=== PATIENT | male | born 1975 | race Hispanic/Latino ===

== ENCOUNTER 2018-09-14 14:30 | Inpatient (IN) | payer OTHER ==
[~2018-09-14] VITALS: Ht 182.9 cm; Wt 116.8 kg
[~2018-09-14 14:30] MED LIST: INSU10VI3 SQ; METF-446 PO; TYL3 PO
[2018-09-14] MEDS ORDERED: MORPHINE SULFATE 4 MG/1ML SYG ONE (15:42)
[2018-09-14 17:03] LABS: BASOPHILS % (AUTO) 0.4 % (0.0-5.0); EOSINOPHILS % (AUTO) 1.2 % (0.0-8.0); HEMATOCRIT 44.4 % (42-54); LYMPHOCYTES % (AUTO) 35.6 % (21.0-51.0); MEAN CORPUSCULAR HEMOGLOBIN 26.4 pg (27.0-33.0); MEAN CORPUSCULAR HGB CONC 33.3 g/dL (32.0-36.0); MEAN CORPUSCULAR VOLUME 79.4 fL (79-99); MONOCYTES % (AUTO) 8.6 % (3.0-13.0); NEUTROPHILS % (AUTO) 54.2 % (40.0-77.0); PLATELET COUNT (AUTO) 196 K/uL (130-400); RED BLOOD CELL COUNT(AUTO) 5.58 MIL/uL (4.50-6.20); RED CELL DISTRIBUTION WIDTH 15.2 % (11.0-15.5); WHITE BLOOD COUNT (AUTO) 6.9 K/uL (4.8-10.8)
[2018-09-14 17:23] LABS: CREATININE 0.7 mg/dL (0.5-1.5); POTASSIUM 3.9 mmol/L (3.5-5.1)
[2018-09-14 17:25] LABS: INR 0.96 (0.85-1.15); PARTIAL THROMBOPLASTIN TIME 30.6 SEC (26.3-35.5); PROTHROMBIN TIME 10.1 SEC (9.6-11.6)
[2018-09-14 17:27] LABS: ALBUMIN 3.1 g/dL (3.5-5.0); BILIRUBIN,TOTAL 0.4 mg/dL (0.2-1.0); CRP QUANTITATIVE 30.9 mg/L (0.00-9.0); TOTAL PROTEIN, SERUM 6.7 g/dL (6.0-8.3)
[2018-09-14 18:23] LABS: ERYTHROCYTE SEDIMENTATION RATE 13 MM/HR (0-15)
[2018-09-14] MEDS ORDERED: ZOSYN 3.375GM+NS 50ML 50 ML IV ONE (18:41)
[2018-09-14] MEDS ORDERED: SODIUM CHLORIDE 0.9% 50 ML IV ONE (18:41)
[2018-09-14] MEDS ORDERED: ACETAMINOPHEN 325 MG TAB PO PRN (19:15)
[2018-09-14] MEDS ORDERED: ONDANSETRON HCL 4 MG/2 ML VIAL IV PRN (19:15)
[2018-09-14] MEDS ORDERED: METFORMIN HCL 500 MG TABLET PO SCH (19:49)
[2018-09-14] MEDS: ZOSYN 3.375GM+NS 50ML 50 ML IV SCH (21:00)
[2018-09-14 21:55] VITALS: BP 164/94
[2018-09-14] MEDS: VANCOMYCIN 1GM+NS 250ML 250 ML IV SCH (22:18)
[2018-09-14] MEDS: SODIUM CHLORIDE 0.9% 1000ML 1,000 ML IV SCH (22:18)
[2018-09-14] MEDS: FAMOTIDINE/PF 20 MG/2 ML VIAL IV SCH (22:18)
[2018-09-14 23:00] VITALS: BP 158/90
[2018-09-15] VITALS (16 sets, daily range): BP systolic 106–178; BP diastolic 54–91
[2018-09-15] MEDS: KETOROLAC TROMETHAMINE 30MG/ML IM PRN ×2 (01:45→20:00)
[2018-09-15] MEDS: ZOSYN 3.375GM+NS 50ML 50 ML IV SCH ×3 (05:00→20:22)
[2018-09-15] MEDS: SODIUM CHLORIDE 0.9% 1000ML 1,000 ML IV SCH ×2 (05:02→10:40)
[2018-09-15] MEDS: FAMOTIDINE/PF 20 MG/2 ML VIAL IV SCH ×2 (09:00→20:16)
[2018-09-15] MEDS ORDERED: LIDOCAINE HCL 1% 20 ML VIAL ONE (09:19)
[2018-09-15] MEDS ORDERED: BUPIVACAINE/PF 0.5% 10ML VIAL ONE (09:19)
[2018-09-15] MEDS ORDERED: MIDAZOLAM HCL 1 MG/ML 2ML VIAL ONE (09:21)
[2018-09-15] MEDS ORDERED: DEXAMETHASONE SOD PHOSPHATE 10MG/ML 1ML VIAL ONE (09:21)
[2018-09-15] MEDS ORDERED: ONDANSETRON HCL 4 MG/2 ML VIAL ONE (09:21)
[2018-09-15] MEDS ORDERED: FENTANYL CITRATE PF 50 MCG/1 ML 2ML VIAL ONE (09:21)
[2018-09-15] MEDS ORDERED: PROPOFOL 10 MG/ML 20ML VIAL IV ONE (09:21)
[2018-09-15] MEDS ORDERED: LIDOCAINE PF 2% 5ML ABBOJECT ONE (09:21)
[2018-09-15] MEDS ORDERED: EPHEDRINE SULFATE 50 MG/ML AMPULE ONE (10:19)
[2018-09-15] MEDS: MORPHINE SULFATE 2 MG/ML 1ML SYG IV PRN ×2 (17:37→22:18)
[2018-09-15] MEDS: INSULIN HUMULIN R 100 UNIT/ML 3ML SQ SCH ×2 (17:55→21:00)
[2018-09-15] MEDS: VANCOMYCIN 1GM+NS 250ML 250 ML IV SCH (20:16)
[2018-09-15] MEDS ORDERED: INSULIN GLARGINE 100 UNITS/ML 10 ML VIAL SQ SCH (21:00)
[2018-09-16] MEDS ORDERED: MORPHINE SULFATE 4 MG/1ML SYG ONE (00:31)
[2018-09-16] MEDS: SODIUM CHLORIDE 0.9% 1000ML 1,000 ML IV SCH (01:30)
[2018-09-16] MEDS ORDERED: KETOROLAC TROMETHAMINE 30MG/ML IVP PRN (01:30)
[2018-09-16 03:00] VITALS: BP 141/81
[2018-09-16] MEDS: ZOSYN 3.375GM+NS 50ML 50 ML IV SCH ×3 (06:10→21:42)
[2018-09-16 06:13] LABS: HEMATOCRIT 37.5 % (42-54); MEAN CORPUSCULAR HGB CONC 33.7 g/dL (32.0-36.0); MEAN CORPUSCULAR VOLUME 80.2 fL (79-99); NUCLEATED RED BLOOD CELLS 0.1 % (0.0-0.19); PLATELET COUNT (AUTO) 166 K/uL (130-400); RED BLOOD CELL COUNT(AUTO) 4.68 MIL/uL (4.50-6.20); RED CELL DISTRIBUTION WIDTH 15.3 % (11.0-15.5); WHITE BLOOD COUNT (AUTO) 6.4 K/uL (4.8-10.8)
[2018-09-16 06:19] LABS: CREATININE 0.8 mg/dL (0.5-1.5); POTASSIUM 4.5 mmol/L (3.5-5.1)
[2018-09-16] MEDS: INSULIN HUMULIN R 100 UNIT/ML 3ML SQ SCH ×4 (06:36→21:39)
[2018-09-16 07:30] VITALS: BP 138/70
[2018-09-16] MEDS ORDERED: HYDROCODONE/ACETAMINOPHEN 5/325 MG TAB PO PRN (08:15)
[2018-09-16] MEDS: METOPROLOL TARTRATE 25 MG TAB PO SCH ×2 (09:00→09:09)
[2018-09-16] MEDS: FAMOTIDINE 20MG TAB 20 MG TAB PO SCH ×2 (09:09→21:42)
[2018-09-16] MEDS: INSULIN GLARGINE 100 UNITS/ML 10 ML VIAL SQ SCH ×2 (09:10→21:39)
[2018-09-16] MEDS ORDERED: DIPH,PERTUSS(ACELL),TET VAC/PF 0.5 ML VIAL IM SCH (09:15)
[2018-09-16] MEDS: MORPHINE SULFATE 4 MG/1ML SYG IV PRN ×3 (10:37→22:36)
[2018-09-16 11:00] VITALS: BP 145/78
--- NOTE | 2018-09-16 11:16 | NUR ---
cm note met with patient and with spouse, pt states he independent with ambulation and adls. 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 and states dc plan will be back to home. states no dc needs. goes to [facility] and meds. states no dc needs. informed of orders for rehab. pt states he does not wish to go to snf or rehab, is able to manage at home, and is available to assist for any other needs. Addendum: 09/16/18 at 1118 by ZAID MARX CM Amended: Links added.
[2018-09-16 16:00] VITALS: BP 140/72
[2018-09-16] MEDS: VANCOMYCIN 1GM+NS 250ML 250 ML IV SCH (18:05)
[2018-09-16 19:10] VITALS: BP 147/77
[2018-09-16 23:10] VITALS: BP 144/74
[2018-09-17 00:05] VITALS: BP 156/82
[2018-09-17 03:10] VITALS: BP 118/59
[2018-09-17] MEDS: ZOSYN 3.375GM+NS 50ML 50 ML IV SCH ×3 (06:00→22:47)
[2018-09-17] MEDS: INSULIN HUMULIN R 100 UNIT/ML 3ML SQ SCH ×4 (06:03→21:00)
[2018-09-17 07:30] VITALS: BP 135/70
[2018-09-17] MEDS: METOPROLOL TARTRATE 25 MG TAB PO SCH ×3 (09:00→21:00)
[2018-09-17] MEDS: INSULIN GLARGINE 100 UNITS/ML 10 ML VIAL SQ SCH ×2 (09:59→22:54)
[2018-09-17] MEDS: FAMOTIDINE 20MG TAB 20 MG TAB PO SCH ×2 (10:01→22:47)
[2018-09-17 11:00] VITALS: BP 174/92
[2018-09-17] MEDS: MORPHINE SULFATE 4 MG/1ML SYG IV PRN ×2 (15:35→22:59)
[2018-09-17 16:00] VITALS: BP 150/79
[2018-09-17 19:22] VITALS: BP 149/82
[2018-09-17] MEDS ORDERED: COMPOUND IV REFRIGERATED 1 EACH IVSOLN MISC PRN (19:45)
[2018-09-17] MEDS: VANCOMYCIN 1.75 GM in SODIUM CHLORIDE 0.9% 250 ML IV SCH (22:47)
[2018-09-18 00:16] VITALS: BP 156/82
[2018-09-18 04:05] VITALS: BP 100/80
[2018-09-18] MEDS: ZOSYN 3.375GM+NS 50ML 50 ML IV SCH ×2 (04:32→12:41)
[2018-09-18] MEDS: MORPHINE SULFATE 4 MG/1ML SYG IV PRN (04:42)
[2018-09-18 06:15] LABS: HEMATOCRIT 38.1 % (42-54); MEAN CORPUSCULAR HEMOGLOBIN 26.5 pg (27.0-33.0); MEAN CORPUSCULAR HGB CONC 33.3 g/dL (32.0-36.0); MEAN CORPUSCULAR VOLUME 79.6 fL (79-99); NUCLEATED RED BLOOD CELLS 0.1 % (0.0-0.19); PLATELET COUNT (AUTO) 160 K/uL (130-400); RED BLOOD CELL COUNT(AUTO) 4.79 MIL/uL (4.50-6.20); RED CELL DISTRIBUTION WIDTH 14.9 % (11.0-15.5); WHITE BLOOD COUNT (AUTO) 5.7 K/uL (4.8-10.8)
[2018-09-18 06:24] LABS: CREATININE 0.7 mg/dL (0.5-1.5); POTASSIUM 4.1 mmol/L (3.5-5.1)
[2018-09-18] MEDS: INSULIN HUMULIN R 100 UNIT/ML 3ML SQ SCH ×3 (06:58→16:30)
[2018-09-18 08:56] VITALS: BP 122/78
[2018-09-18] MEDS: METOPROLOL TARTRATE 25 MG TAB PO SCH ×3 (09:00→14:15)
[2018-09-18] MEDS: VANCOMYCIN 1.75 GM in SODIUM CHLORIDE 0.9% 250 ML IV SCH (09:38)
[2018-09-18] MEDS: FAMOTIDINE 20MG TAB 20 MG TAB PO SCH (09:39)
[2018-09-18] MEDS: INSULIN GLARGINE 100 UNITS/ML 10 ML VIAL SQ SCH (09:45)
--- NOTE | 2018-09-18 13:23 | NUR ---
CM Note: [employer] cancelled, spouse will purchase equipments privately CM met with spouse and pt, aware insurance not in network with [facility]. Updated regarding [employer] for standard walker, wheelchair, and shower chair. Pt has not met deductable this year. As per spouse and pt cancel [employer] request, spouse will purchase equipments privately. Informed spouse to bring standard walker in pt's room once purchased so that pt may be discharged safely, verbalized understanding. Pending spouse to buy walker and bring to pt's room. Primary nurse aware. CM to cont to follow up.
[2018-09-18 13:46] VITALS: BP 139/84
== END 2018-09-18 17:33 | disposition home or self-care (01) | DRG 854 ==
LOC: EDH 14:30 → OBSVTOIN 18:40 → EDHIP 18:40 → 3DH 21:07
PROVIDERS: ADMIT Internal Medicine; ATTEND Internal Medicine
PROC: 0Y6Q0Z1 Detachment at Left 1st Toe, High, Open Approach (ICD-10-PCS; principal; 2018-09-15 09:25)
PROC: 3E0234Z Introduction of Serum, Toxoid and Vaccine into Muscle, Percutaneous Approach (ICD-10-PCS; 2018-09-16)
DX: A41.9 Sepsis, unspecified organism (principal); L02.612 Cutaneous abscess of left foot; M86.172 Other acute osteomyelitis, left ankle and foot; E11.69 Type 2 diabetes mellitus with other specified complication; I10 Essential (primary) hypertension; E11.65 Type 2 diabetes mellitus with hyperglycemia; E66.9 Obesity, unspecified; E11.621 Type 2 diabetes mellitus with foot ulcer; L97.529 Non-pressure chronic ulcer of other part of left foot with unspecified severity; L03.032 Cellulitis of left toe; Z68.34 Body mass index [BMI] 34.0-34.9, adult; Z82.0 Family history of epilepsy and other diseases of the nervous system; Z82.3 Family history of stroke; Z82.49 Family history of ischemic heart disease and other diseases of the circulatory system; Z82.5 Family history of asthma and other chronic lower respiratory diseases; Z87.891 Personal history of nicotine dependence; Z83.3 Family history of diabetes mellitus; Z80.9 Family history of malignant neoplasm, unspecified; Z79.4 Long term (current) use of insulin; Z23 Encounter for immunization
CPT/HCPCS: 36415; 73630; 73700; 73718; 80048; 80053; 80202; 82948; 83605; 85025; 85027; 85610; 85651; 85730; 86140; 87040; 87070; 87076; 87205; 88305; 88311; 90715; 97039; G0378; J1100; J1815; J1885; J2001; J2250; J2270; J2405; J2543; J2704; J3010; J3370; J3490; J7030

== ENCOUNTER 2019-12-23 14:35 | Emergency (ER) | payer OTHER ==
[2019-12-23 15:13] LABS: BASOPHILS % (AUTO) 0.7 % (0.0-5.0); EOSINOPHILS % (AUTO) 1.5 % (0.0-8.0); HEMATOCRIT 45.4 % (42-54); LYMPHOCYTES % (AUTO) 36.1 % (21.0-51.0); MEAN CORPUSCULAR HEMOGLOBIN 25.8 pg (27.0-33.0); MEAN CORPUSCULAR HGB CONC 32.6 g/dL (32.0-36.0); MEAN CORPUSCULAR VOLUME 79.2 fL (79-99); MONOCYTES % (AUTO) 7.8 % (3.0-13.0); NEUTROPHILS % (AUTO) 53.3 % (40.0-77.0); PLATELET COUNT (AUTO) 210 K/uL (130-400); RED BLOOD CELL COUNT(AUTO) 5.73 MIL/uL (4.50-6.20); RED CELL DISTRIBUTION WIDTH 13.9 % (11.0-15.5); WHITE BLOOD COUNT (AUTO) 8.2 K/uL (4.8-10.8)
[2019-12-23 15:28] LABS: APPEARANCE,URINE CLEAR (CLEAR); BILIRUBIN,URINE SMALL (NEGATIVE); COLOR,URINE YELLOW (YELLOW); GLUCOSE, URINE (UA) 250 mg/dL (NEGATIVE); KETONES,URINE 5 mg/dL (NEGATIVE); LEUKOCYTE ESTERASE ,URINE NEGATIVE (NEGATIVE); NITRATE,URINE NEGATIVE (NEGATIVE); OCCULT BLOOD,URINE TRACE-INTACT (NEGATIVE); PROTEIN,URINE 100 mg/dL (NEGATIVE)
[2019-12-23 15:40] LABS: BACTERIA,URINE Few /HPF (None Seen); RBC,URINE 0-1 /HPF (0-1); SQUAMOUS EPITHELIAL CELL,UR 0-2 /HPF (0-2); WBC,URINE 0-1 /HPF (0-1)
[2019-12-23 15:41] LABS: MUCUS,URINE Few LPF (None Seen)
[2019-12-23 15:45] LABS: POTASSIUM 3.9 mmol/L (3.5-5.1)
[2019-12-23 16:21] LABS: ALBUMIN 3.5 g/dL (3.5-5.0); BILIRUBIN,TOTAL 0.4 mg/dL (0.2-1.0); CREATININE 0.8 mg/dL (0.5-1.5); TOTAL PROTEIN, SERUM 7.1 g/dL (6.0-8.3)
== END 2019-12-23 18:01 | disposition home or self-care (01) ==
LOC: EDH 14:35
DX: R10.13 Epigastric pain (principal)
CPT/HCPCS: 36415; 76705; 80053; 81001; 82150; 83690; 84478; 85025

== ENCOUNTER → 2020-01-21 | Outpatient (CLI) | payer OTHER ==
[~2020-01-21] MED LIST changes: -INSU10VI3 SQ; +IOHEXOL 350 MG/ML 100ML INFUS..BTL IV ONE; -METF-446 PO; -TYL3 PO
== END | disposition home or self-care (01) ==
LOC: RAH 08:38
PROVIDERS: ATTEND Internal Medicine Gastroenterology
DX: K76.0 Fatty (change of) liver, not elsewhere classified (principal); R63.4 Abnormal weight loss; R10.13 Epigastric pain; K59.00 Constipation, unspecified; K57.30 Diverticulosis of large intestine without perforation or abscess without bleeding; M47.9 Spondylosis, unspecified
CPT/HCPCS: 74178; Q9967